=== PATIENT | male | born 2000 | race Caucasian/White ===

== ENCOUNTER 2022-05-10 17:50 | Emergency (ER) | payer MEDICAID, OTHER ==
[~2022-05-10] VITALS: Ht 172.7 cm; Wt 68.0 kg
--- NOTE | 2022-05-10 19:28 | NUR ---
Patient was called to be placed in bed, but patient was not present in the waiting room or outside of ER.
--- NOTE | 2022-05-10 20:10 | NUR ---
Patient was called to be placed in room but was not in the waiting room or outside of ER.
--- NOTE | 2022-05-10 20:43 | NUR ---
Patient was called to be placed in room but was not present in the waiting room or outside of ER. Patient was traiged but not seen by ERMD.
== END 2022-05-10 20:43 | disposition left against medical advice (07) ==
LOC: ER 17:54
DX: Z53.21 Procedure and treatment not carried out due to patient leaving prior to being seen by health care provider (principal)
CPT/HCPCS: A4663